=== PATIENT | male | born 1990 | race Caucasian/White ===

== ENCOUNTER 2017-02-09 17:15 | Emergency (ER) | payer OTHER ==
--- NOTE | ~2017-02-09 | EKG ---
PATIENT: DICK EDWARDS UNIT #: [id number] Ventricular Rate: 75 BPM Atrial Rate: 75 BPM P-R Interval: 172 ms QRS Duration: 98 ms Q-T Interval: 360 ms QTC Calculation(Bezet): 402 ms P [place]: 60 degrees Calculated R [place]: 53 degrees Calculated T [place]: 51 degrees Diagnosis Line: Normal sinus rhythm Diagnosis Line: Normal ECG Diagnosis Line: When compared with ECG of 27-APR-2016 21:06, Diagnosis Line: T wave amplitude has increased in Anterior leads Diagnosis Line: Confirmed by CLIFFORD BARNES MD ([id number]) on Diagnosis Line: 02/10/2017 8:49:06 AM INTERPRETING MD: MOLLY CORDERO
--- NOTE | ~2017-02-09 | CT16 ---
[facility] A Service of [facility] & [facility] RADIOLOGY TEXT RESULTS PATIENT: DICK EDWARDS LOCATION: [facility] : [birth year] UNIT #: [id number] AGE: [address]: Aicha Aceves MD SEX: M ORDER DR: [id number] [facility] [address] [place], [place] [address] [id number] E MR#: [id number] Acc #: [id number] NAME: DICK EDWARDS : 1990 SEX: M STUDY DATE/TIME: 02/09/2017 21:14 UNIT: [facility] ROOM: STUDY DESCRIPTION: CT Angio Chest for PE Attending Physician: Aicha Aceves M.D. Ordering Physician: Chuckie West M.D. [facility] This report is preliminary unless electronic signature is present EXAM CT angiography chest for PE, 02/09/2017 HISTORY Chest pain times today. Short of air, chest tightness, dizziness. TECHNIQUE CT pulmonary angiography performed with intravenous administration 80 mL Isovue-370. No prior dedicated CTs of chest. Limited views of the lower thorax from CT abdomen and pelvis dated 09/23/2013. Three-dimensional reconstructions performed through the pulmonary arteries. This CT exam was performed with one or more of the following radiation dose reduction techniques: Automatic exposure control, adjustment of mA and/or kV according to patient size, and iterative reconstruction. FINDINGS Hypodense 1-cm nodule posteromedial right thyroid lobe. Best further evaluated with thyroid ultrasound. No axillary, mediastinal adenopathy. 1 cm short-axis right hilar node. Heart normal in size. No pleural effusions. Visualized portions of liver, spleen, pancreas, adrenal glands, upper renal poles unremarkable. Esophagus, stomach, small bowel, colon unremarkable. No acute airspace disease is seen. There is mild bronchial wall prominence in the lungs bilaterally. More pronounced in the central lung zones. Correlate with any known history of bronchitis or reactive airway disease. There is no bronchial dilatation. No pleural effusion, pneumothorax or suspicious nodule. Pulmonary arteries are well opacified. No PE. No evidence of aortic aneurysm or dissection. The visualized aortic branch vessels are patent. Bony structures show no acute abnormality. IMPRESSION 1. No PE. No evidence of aortic aneurysm or dissection. Visualized aortic branch vessels appear patent. [facility] A Service of [facility] RADIOLOGY TEXT RESULTS PATIENT: DICK EDWARDS LOCATION: [facility] : [birth year] UNIT #: [id number] AGE: [address]: Aicha Aceves MD SEX: M ORDER DR: 2. There is mild bronchial wall thickening in the lungs bilaterally and symmetrically, more pronounced in the central lung zones. This could be a reflection of acute bronchitis. Possibility of reactive airway disease could be considered. Please correlate with the patient's history and clinical presentation. The lungs are otherwise clear. Of note, there is no bronchial dilatation. 3. Single 1 cm short-axis right hilar lymph node favored to be benign/reactive in nature. 4. Visualized upper abdomen unremarkable. Dictated by... Nithin Hansen M.D. THIS IS AN ELECTRONICALLY VERIFIED REPORT Nithin Hansen M.D. at 02/10/2017 10:27 PM LACEY/jesenia TD: 02/10/2017 02:03 JOB #: [id number] MEDICAL IMAGING REPORT Page 1 of 1 COPY
--- NOTE | ~2017-02-09 | CR72 ---
[facility] A Service of [facility] RADIOLOGY TEXT RESULTS PATIENT: DICK EDWARDS LOCATION: [facility] : [birth year] UNIT #: [id number] AGE: [address]: Aicha Aceves MD SEX: M ORDER DR: [id number] [facility] [address] [place], [place] [address] [id number] E MR#: [id number] Acc #: [id number] NAME: DICK EDWARDS : 1990 SEX: M STUDY DATE/TIME: 02/09/2017 20:05 UNIT: [facility] ROOM: STUDY DESCRIPTION: CR Chest Single View Portable Attending Physician: Aicha Aceves M.D. Ordering Physician: Ed Pedro Pablo West M.D. Primary Care Physician: [facility] MEDICAL IMAGING REPORT This report is preliminary unless electronic signature is present EXAM Portable chest x-ray, 02/09/2017 HISTORY Chest pain. Chest pain radiates to both arms. Tingling in both arms, short of air began today. FINDINGS AP radiograph of the chest is presented. Comparison 04/27/2016. Bony structures unremarkable. Heart and mediastinum normal in size and contour. The lungs are well inflated and clear. There is no evidence of acute infectious or inflammatory disease. No pleural effusion or pneumothorax. No suspicious nodule. Dictated by... Nithin Hansen M.D. THIS IS AN ELECTRONICALLY VERIFIED REPORT Nithin Hansen M.D. at 02/10/2017 10:27 PM LACEY/merissa TD: 02/10/2017 01:03 JOB #: [id number] MEDICAL IMAGING REPORT Page 1 of 1 COPY
[~2017-02-09 17:15] MED LIST: ELIMITE60 GM TOP; IBUPROFEN PO; KETOPROFEN PO; LORTAB 5/500 TA1 TA1 PO; NO MEDICATIONS; PHENERGAN PO; PHENERGAN12.5 MG/SU RC; PHENERGAN25 M1 PO; PHENERGAN25 MG PO; PREDNISONE PO; VICODIN 5/500 T1 TAB PO
[2017-02-09 19:47] LABS: BASOPHIL% 0.3 % (0-2.5); EOSINOPHIL% 0.1 % (0.0-7.0); HEMATOCRIT 43.2 % (38.0-50.0); HEMOGLOBIN 14.2 gm/dL (13.0-16.0); LYMPHOCYTE# 1.8 X10e3 (1.0-3.5); LYMPHOCYTE% 13.2 % (17.0-45.0); MEAN CELL VOLUME 86.1 FL (83-96); MEAN CORPUSCULAR HEMOGLOBIN 28.3 PG (28-34); MEAN CORPUSCULAR HGB CONC 32.9 g/dL (30-36); MEAN PLATELET VOLUME 8.1 FL (6.5-11.5); MONOCYTE# 0.6 X10e3 (0-1.0); MONOCYTE% 4.4 % (3.0-12.0); NEUTROPHIL# 11.1 X10e3 (1.5-7.1); PLATELET COUNT 245 X10e3 (140-420); RED BLOOD COUNT 5.02 X10e (3.90-5.60); RED CELL DISTRIBUTION WIDTH 13.5 % (11.0-15.5); WHITE BLOOD COUNT 13.5 X10e3 (4.0-10.5)
[2017-02-09 19:49] LABS: POC - CKMB 1.5 ng/mL (0.0-7.9); POC - TROPONIN <0.05 ng/mL (<=0.05)
[2017-02-09 19:50] LABS: DIFF IND NO
[2017-02-09 20:14] LABS: ALBUMIN SERUM 4.8 g/dL (3.5-5.0); BILIRUBIN,TOTAL 0.7 mg/dL (0.2-2.0); BUN/CREATININE RATIO 12.72; CALCIUM SERUM 9.4 mg/dL (8.4-10.2); CREATININE SERUM 1.1 mg/dL (0.6-1.4); GLOM FILT RATE Estimated 90.9 mL/min (>60); POTASSIUM 3.8 mmol/L (3.5-5.1); PROTEIN TOTAL SERUM 7.7 g/dL (6.0-8.3)
== END 2017-02-09 22:27 | disposition home or self-care (01) ==
LOC: CED 17:15
PROVIDERS: Emergency Medicine
DX: J40 Bronchitis, not specified as acute or chronic (principal); G43.909 Migraine, unspecified, not intractable, without status migrainosus; F17.200 Nicotine dependence, unspecified, uncomplicated
CPT/HCPCS: 36415; 71010; 71275; 80053; 82553; 84484; 85025; 93005; 99284; Q9967